=== PATIENT | male | born 1955 | race African-American/Black ===

== ENCOUNTER → 2018-06-16 | Outpatient (CLI) | payer OTHER | LOC: MRI 07:01 | DX: S83.242A Other tear of medial meniscus, current injury, left knee, initial encounter (principal); M84.462A Pathological fracture, left tibia, initial encounter for fracture; M25.462 Effusion, left knee; M22.42 Chondromalacia patellae, left knee; X58.XXXA Exposure to other specified factors, initial encounter; Y93.89 Activity, other specified; Y92.89 Other specified places as the place of occurrence of the external cause; Y99.8 Other external cause status ==

== ENCOUNTER 2018-07-13 05:49 | Inpatient (IN) | payer OTHER ==
[2018-07-06 09:18] LABS: HEMATOCRIT 40.5 % (42.0-52.0); HEMOGLOBIN 13.6 gm/dL (14.0-18.0); MCH 28.9 pg (26.0-34.0); MCHC 33.5 g/dL (28.0-37.0); MCV 86.3 fL (80.0-100.0); RBC 4.7 mil/uL (4.50-6.00); RDW 16.1 % (10.5-14.5); WBC 5.4 thou/uL (4.0-11.0)
[2018-07-06 09:25] LABS: ALBUMIN 3.4 g/dL (3.4-5.0); CALCIUM 8.9 mg/dL (8.5-10.1); CREATININE 1.3 mg/dL (0.7-1.3); POTASSIUM 3.4 mmol/L (3.5-5.1)
[2018-07-06 09:37] LABS: URINE BILIRUBIN NEGATIVE (Negative); URINE BLOOD 3+ (Negative); URINE CLARITY CLEAR; URINE COLOR YELLOW; URINE GLUCOSE-RANDOM* NEGATIVE (Negative); URINE KETONES NEGATIVE (Negative); URINE LEUKOCYTES-REFLEX NEGATIVE (Negative); URINE NITRITE-REFLEX NEGATIVE (Negative); URINE PROTEIN (DIPSTICK) TRACE (Negative); URINE SPECIFIC GRAVITY 1.015 (1.005-1.035); URINE UROBILINOGEN 0.2 E.U./dl (0.2-1.0)
[2018-07-06 09:45] LABS: CASTS None Seen /LPF (None Seen); SQUAMOUS 0-3 Few /LPF (0-3)
[2018-07-06 09:46] LABS: BACTERIA-REFLEX None Seen /HPF (None Seen); CRYSTALS None Seen /LPF (None Seen); MUCUS >6 Heavy strn/LPF (None Seen); URINE RBC >20 Many /HPF (0-2); URINE WBC-REFLEX 0-5 Rare /HPF (0-5)
--- NOTE | 2018-07-06 15:45 | EKG ---
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
[~2018-07-13] VITALS: Ht 172.7 cm; Wt 97.1 kg
[~2018-07-13 05:49] MED LIST: BYSTOLIC 5 MG5 M1 PO; COZAAR 25 MG TA25 M1 PO; NAPROSYN500 MG PO; NORVASC10 MG PO; VITAMIN D1000 UNIT PO; ZYLOPRIM300 MG PO
[2018-07-13 10:39] VITALS: BP 161/89
[2018-07-13 17:15] VITALS: BP 128/67
--- NOTE | 2018-07-13 19:28 | NUR ---
63 YO MALE TRANSPORTATED FROM OR, MARYA DRSG TO L KNEE D/I. IV INTACT INL HAND NOW INFUSING D51/2NS@100/HR W/O COMPS.,DENIES ANY PAIN AT THIS TIME, ICE BAG IN PLACE. TOLERATING PO WELL.
[2018-07-13 19:33] VITALS: BP 127/68
[2018-07-14 00:10] VITALS: BP 117/66
--- NOTE | 2018-07-14 02:39 | NUR ---
Pt A&Ox4, able to make needs known. Pt denies significant pain. MARYA drsg to L knee C/D/I. Ice applied. Neurovascular checks remain without change. at bedside. Pt resting comfortably in bed at this time, call light within reach, will continue be monitored.
[2018-07-14 03:31] VITALS: BP 112/62
[2018-07-14 04:37] LABS: HEMATOCRIT 34.8 % (42.0-52.0); HEMOGLOBIN 11.4 gm/dL (14.0-18.0); MCH 28.6 pg (26.0-34.0); MCHC 32.8 g/dL (28.0-37.0); MCV 87.2 fL (80.0-100.0); RDW 15.5 % (10.5-14.5)
[2018-07-14 07:30] VITALS: BP 122/71
--- NOTE | 2018-07-14 10:23 | O ---
[facility] [place] [address] OPERATIVE REPORT Name: CLARISSE DUARTE Room #: 423-1 ADM IN M.R.#: [id number] Admission: 07/13/18 Attend Phys: Reilly Cortes MD Discharge: Date of : 57 Report #: [id number] THIS REPORT FOR: //name// CC: Gabriele Cortes DATE OF SERVICE: 07/13/2018 PREOPERATIVE DIAGNOSIS: Left knee medial compartment osteoarthritis. POSTOPERATIVE DIAGNOSIS: Left knee medial compartment osteoarthritis. PROCEDURE: Left medial compartment knee arthroplasty with Navio robotic assistance. SURGEON: Reilly Cortes MD. PROFESSIONAL BASS FISHERMAN: Jeanette Shah PA-C. INDICATION FOR PROFESSIONAL BASS FISHERMAN: Throughout the case, extensive retraction and manipulation of the knee was required. This was afforded to me by my rehab care assistant. ANESTHESIA: LMA with an adductor canal block. IMPLANTS: [employer]hew size 3 Journey Oxinium femoral component, a size 3 tibia and a size 9 polyethylene. TOURNIQUET TIME: 74 minutes. ESTIMATED BLOOD LOSS: 25 mL. COMPLICATIONS: None. SPECIMENS: None. CONDITION UPON LEAVING THE OPERATING ROOM: Stable. INDICATIONS FOR PROCEDURE: The patient is a 63-year-old gentleman with severe left knee medial compartment osteoarthritis and failed conservative measures for this and after discussion with him, he elected for left medial compartment knee arthroplasty. DESCRIPTION OF PROCEDURE: Risks, benefits, alternatives, complications were discussed in detail with the patient including but not limited to risk of anesthesia, risk of damage to nerves, arteries, blood vessels, risk for infection, bleeding, risk for continued knee pain, need for reoperation. [facility] [address] [place] [address] OPERATIVE REPORT Name: CLARISSE DUARTE Room #: 423-1 ADM IN M.R.#: [id number] Admission: 07/13/18 Attend Phys: Reilly Cortes MD Discharge: Date of : 57 Report #: [id number] Informed consent was obtained from the patient. Left knee was appropriately marked in the preoperative holding area. IV Ancef was given for preoperative antibiotics. Adductor canal block was placed. Anesthesia was brought to the operating room and placed in supine position on the operating room table. LMA anesthesia was induced without complication. Tourniquet was placed on the left thigh. Left lower extremity was prepped and draped in normal sterile fashion. Timeout was performed properly identifying the patient and procedure as well as the instrumentation and implants. All in the operating room were in agreement. Left lower extremity was exsanguinated, tourniquet was inflated. Tourniquet time was 74 minutes. A standard approach to the medial knee was made with 10 blade through the skin. Dissection was taken down sharply to the fascia and deep flaps were developed medially and laterally. Fresh 10 blade was used to make a medial parapatellar arthrotomy, and the knee was inspected. There was severe medial compartment osteoarthritis. Lateral compartment was well maintained. Patellofemoral compartment was well maintained. We decided to proceed with medial compartment arthroplasty. Reference pins were then placed in the femur and the tibia. The knee was then digitally mapped using the Navio robotic rehab care assistant, and an intraoperative plan was made. We sized the size 3 femur and a size 3 tibia. After acceptance of the intraoperative plan, the femoral resection was made with Navio bur. Tibial resection was made with a Navio bur. Tibia was then sized and found to be a size 3. Size 3 tibial trial was placed and drilled. A size 3 femoral trial was placed. This was then trialed with a size 9 polyethylene. Knee was taken through range of motion, found to have good balance in flexion and extension with 1 mm of medial laxity throughout range of motion both manually as well as digitally. After this, trial components were removed. Bony ends were thoroughly irrigated with normal saline. A final size 3 tibia, size 3 Journey Oxinium medial compartment femoral component were cemented in place using standard cementation techniques. While the cement cured, a periarticular injection consisting of morphine, ropivacaine, epinephrine, Toradol was placed around the knee joint capsule. After the cement cured, a final size 9 polyethylene was placed, and the knee was thoroughly irrigated with normal saline. A gram of vancomycin was placed deep in the joint. The fascia was closed with 0 Vicryl. Tourniquet was deflated. Hemostasis was obtained with Bovie cautery. The skin was closed with 2-0 Vicryl, 3-0 Monocryl. Dermabond and a MARYA dressing were applied. The patient tolerated this procedure well and went to recovery room under care of Anesthesia postoperatively. <ELECTRONICALLY SIGNED> By: Reilly Cortes MD 07/14/18 1023 1432 1529 Reilly Cortes MD /nt
[2018-07-14] MEDS ORDERED: NEURONTIN 300300 M1 PO (10:30)
[2018-07-14] MEDS ORDERED: TRI-BUFFERED A325 M1 PO (10:30)
[2018-07-14 14:27] VITALS: BP 122/71
--- NOTE | 2018-07-14 14:30 | NUR ---
PT ADMITTED REALTED TO LT PARTIAL KNEE REPLACEMENT. CM REVIEWED CHART AND SPOKE WITH CARE TEAM. CM MET WITH PT AND SPOUSE AT BEDSIDE THIS DAY. PT IS A&O X4. CM ROLE INTRODUCED. PT INDICATED HE LIVES IN A HOUSE WITH 1 STEP TO ENTER AND NO STEPS INSIDE. 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 PT INDICATED NO DME OR HH HX. PT IS SET UP WITH OP THERAPY UPON DC. PT NEEDS A FWW FOR DISHCARGE. CM ORDERED FWW THROUGH [facility] [place]. IT IS TO BE DELIVERED HERE PTC. NO OTHER CM INTERVENTION INDICATED AT THIS TIME. CASE CLOSED.
--- NOTE | 2018-07-14 15:28 | NUR ---
NO CHANGE SINCE AM ASSESMENT. PAIN MANAGED BY MEDS ORDERED. NO SOA. MARYA DRESSING CDI. ORDERS TO DC HOME. DC INSTRUCTIONS GIVEN TO PT AND . BOTH VERBALIZED UNDERSTANDING. PT DCD HOME WITH SELF CARE IN STABLE CONDITION.
== END 2018-07-14 15:36 | disposition home or self-care (01) | DRG 470 ==
LOC: TBA 05:49 → 4E 05:49 → PRE 05:51 → 4E 16:52 → PRE 18:01 → ENTRNSPT 07-14 15:29 → EDTRNSPTSTS 07-14 15:33 → 4E 07-14 15:36
PROVIDERS: ADMIT Orthopaedic Surgery
DX: M17.12 Unilateral primary osteoarthritis, left knee (principal); Z79.82 Long term (current) use of aspirin; Z79.899 Other long term (current) drug therapy
CPT/HCPCS: 10783; 50010; 50101; 50415; 50954; 51130; 51225; 53078; 53370; 54118; 56527; 56528; 57095; 57103; 57109; 57110; 57111; 57113; 57180; 62110; 62900; 64043; 65060; 70005